=== PATIENT | male | born 1965 | race Caucasian/White ===

== ENCOUNTER 2017-01-23 10:03 | Emergency (ER) | payer BC ==
[2017-01-23] MEDS ORDERED: cefTRIAXone VIAL(*) 1,000 MG VIAL IVPB ONE (10:55)
[2017-01-23] MEDS ORDERED: NS 0.9% 1000 ML* 1,000 ML IV ONE (10:56)
--- NOTE | 2017-01-23 11:02 | UC ---
Complaint Male HPI - HPI Summary HPI Summary: He has had chronic urinary frequency and prior care under a urologist for prostate disease but it got better and he was lost to f/u. He is not on any prostate medications now any longer. He has started having hematuria and last night he had a fever. He has not taken antipyretics today and has no fever this morning. - History of Current Complaint Chief Complaint: UCGeneralIllness Stated Complaint: URINARY;FEVER Time Seen by Provider: 01/23/17 10:25 Hx Obtained From: Patient, Family/University Extension Specialist Onset/Duration: Gradual Onset, Lasting Days Timing: Constant, Lasting Days Severity Initially: Mild Severity Currently: Moderate Location: None Aggravating Factor(s): Nothing - No pain with urination. Alleviating Factor(s): Nothing Associated Signs And Symptoms: Positive: Diaphoresis, Fever, Hematuria, Appetite - He is still eating and drinking well.. Negative: Dysuria, Constipation, Blood in Stool, Rectal Pain, Penile Swelling, Penile Discharge - Allergies/Home Medications Allergies/Adverse Reactions: Allergies Allergy/AdvReac Type Severity Reaction Status Date / Time No Known Allergies Allergy Verified 01/23/17 10:33 PMH/Surg Hx/FS Hx/Imm Hx Previously Healthy: No - prostate disease. - Surgical History Surgical History: Yes Surgery Procedure, Year, and Place: L achillies tendon repair, L shoulder, both ankles - Family History Known Family History: Positive: Other - no known prostate cancer. - Social History Occupation: Employed Full-time Lives: With Family Alcohol Use: None Substance Use Type: None Smoking Status (MU): Never Smoked Tobacco Have You Smoked in the Last Year: No - Immunization History Most Recent Influenza Vaccination: 1835-4321 Hx Tetanus, Diphtheria Vaccination: Yes Vaccination Up to Date: Yes Review of Systems Constitutional: Fever, Chills Genitourinary: Frequency All Other Systems Reviewed And Are Negative: Yes Physical Exam Triage Information Reviewed: Yes Appearance: Well-Appearing, No Pain Distress, Well-Nourished Vital Signs: Initial Vital Signs Temp 98.5 F 01/23/17 10:33 Pulse 80 01/23/17 10:33 Resp 20 01/23/17 10:33 BP 109/64 01/23/17 10:33 Pulse Ox 100 01/23/17 10:33 Vital Signs Reviewed: Yes Eyes: Positive: Conjunctiva Clear ENT: Positive: Normal ENT inspection. Negative: Pharyngeal erythema Neck: Positive: Supple, Nontender, No Lymphadenopathy Respiratory: Positive: Lungs clear, Normal breath sounds, No respiratory distress, No accessory muscle use. Negative: Respiratory distress Cardiovascular: Positive: RRR, No Murmur, Pulses Normal, Brisk Capillary Refill Abdomen Description: Positive: Nontender, No Organomegaly, Soft. Negative: CVA Tenderness (R), CVA Tenderness (L), Distended, Guarding, Peritoneal Signs Musculoskeletal: Positive: Strength Intact, ROM Intact, No Edema Neurological: Positive: Alert, Muscle Tone Normal. Negative: Fatigued, Lethargic Psychological: Positive: Normal Response To Family, Age Appropriate Behavior Skin: Negative: rashes Re-Evaluation - Re-Evaluation First Eval Change: Improved Complaint Male Course/Dx - Course Course Of Treatment: No sirs criteria and no chills or fever now. I do not believe there is evidence of sepsis. he does have known prostate disease which has gone unchecked for some time. LIkely this is BPH with overflow incontinence and distension with infection. We did discuss importance of f/u to ensure this is not prostate cancer or bladder cancer. He and agree to f/u with urology. CT reviewed with both of them and they again agree to f/u with urology. - Differential Dx/Diagnosis Provider Diagnoses: uti. prostate disease. Discharge - Discharge Plan Condition: Good Disposition: HOME Prescriptions: Cephalexin CAP* [Keflex CAP*] 500 mg PO TID #30 cap Patient Education Materials: Hematuria (ED), Urinary Traction Infection in Older Adults (ED) Referrals: Non Staff,Doctor [Primary Care Provider] - Jorge Darby MD [Medical Doctor] -
--- NOTE | 2017-01-23 11:15 | RAD ---
CLINICAL HISTORY: Hematuria and fever COMPARISON: None TECHNIQUE: Noncontrast CT examination of the abdomen and pelvis from the lung bases through the initial tuberosities. FINDINGS: VISUALIZED LUNG BASES: The visualized lung bases are grossly clear. There is no pleural effusion. ABDOMEN AND PELVIS: Evaluation of the solid organs and vasculature is limited without intravenous contrast. The liver, spleen, pancreas and adrenal glands are grossly normal in appearance. The gallbladder is normal. The kidneys are normal in appearance without focal mass, calcification or signs of hydronephrosis. Evaluation of the gastrointestinal tract is limited without oral contrast. The small and large bowel are not distended.The patient's normal appendix is identified in the right lower quadrant measuring 5 mm in diameter with gas in the lumen (axial image 134 and coronal image 39). There is no gross retroperitoneal or mesenteric lymphadenopathy. There is a small left-sided fat-containing inguinal hernia. There is coarse calcification noted in the prostate gland. The abdominal aorta and iliac arteries are normal in course and diameter. Degenerative changes include multilevel loss of intervertebral disc height involving the lower thoracic and lumbar spine.There are no sinister bone lesions. IMPRESSION: There are chronic and degenerative changes described in body the report, but none that would account for the patient's current clinical presentation. There are no renal calculi or signs of hydronephrosis bilaterally.
[2017-01-23 12:38] VITALS: BP 125/66
[2017-01-23 14:09] LABS: Hematocrit 44 % (42-52); Hemoglobin 14.8 g/dl (14.0-18.0); Mean Corpuscular HGB Conc 34 g/dl (31-36); Mean Corpuscular Hemoglobin 31 pg (27-31); Mean Corpuscular Volume 91 fL (80-94); Mean Platelet Volume 10 um3 (7.4-10.4); Red Blood Count 4.78 10^6/ul (4.0-5.4); Red Cell Distribution Width 14 % (10.5-15)
[2017-01-23 14:15] LABS: Albumin 4.4 g/dL (3.2-5.2); BUN/Creatinine Ratio 16.3 (8-20); EGFR African American 112.5 (>60); EGFR Non-African American 87.4 (>60); Globulin 2.3 g/dL (2-4); Total Bilirubin 2.4 mg/dL (0.2-1.0); Total Protein 6.7 g/dL (6.4-8.9)
--- NOTE | 2017-01-24 07:54 | UC ---
Progress - Progress Note Progress Note: call patient. elevated wbc - 20.0. if worse er. Re-Evaluation - Re-Evaluation First Eval Change: Improved
== END 2017-01-23 12:50 | disposition home or self-care (01) ==
LOC: UCCORT 10:03
DX: N39.0 Urinary tract infection, site not specified (principal); R31.9 Hematuria, unspecified; B96.20 Unspecified Escherichia coli [E. coli] as the cause of diseases classified elsewhere; N42.9 Disorder of prostate, unspecified; R50.9 Fever, unspecified; R61 Generalized hyperhidrosis
CPT/HCPCS: 36415; 74176; 80053; 81003; 85025; 87077; 87086; 87186; 96361; 96365; 99212; G0463; J0696

== ENCOUNTER 2017-08-24 17:37 | Emergency (ER) | payer BC ==
[2017-08-24 18:09] VITALS: BP 121/66
--- NOTE | 2017-08-24 18:53 | UC ---
Skin Complaint HPI - HPI Summary HPI Summary: 51 yo male abraided right ware about a week ago playing soft ball now feeling some malaise and myalgias thinks his tetanus is up to date he will check - History of Current Complaint Chief Complaint: UCSkin Time Seen by Provider: 08/24/17 18:41 Stated Complaint: RIGHT CALF WOUND Hx Obtained From: Patient Onset/Duration: Sudden Onset, Lasting Days Timing: Constant Onset Severity: Moderate Current Severity: Mild Pain Intensity: 2 Pain Scale Used: 0-10 Numeric Location: Discrete Character: Swelling, Pain, Redness, Raised Aggravating Factor(s): Touch Alleviating Factor(s): Nothing Associated Signs & Symptoms: Positive: Tenderness - Allergy/Home Medications Allergies/Adverse Reactions: Allergies Allergy/AdvReac Type Severity Reaction Status Date / Time morphine Allergy Nausea Verified 08/24/17 18:09 Review of Systems Constitutional: Fatigue Skin: Negative Eyes: Negative ENT: Negative Respiratory: Negative Cardiovascular: Negative Gastrointestinal: Negative Genitourinary: Negative Motor: Negative Neurovascular: Negative Musculoskeletal: Myalgia Neurological: Negative Psychological: Negative Is Patient Immunocompromised?: No All Other Systems Reviewed And Are Negative: Yes PMH/Surg Hx/FS Hx/Imm Hx Previously Healthy: Yes - Surgical History Surgical History: Yes Surgery Procedure, Year, and Place: L achillies tendon repair, L shoulder, both ankles - Family History Known Family History: Positive: Diabetes, Other - no known prostate cancer. - Social History Alcohol Use: None Substance Use Type: None Smoking Status (MU): Never Smoked Tobacco Have You Smoked in the Last Year: No - Immunization History Most Recent Influenza Vaccination: 1631-2596 Hx Tetanus, Diphtheria Vaccination: Yes Vaccination Up to Date: Yes Physical Exam Triage Information Reviewed: Yes Appearance: Well-Appearing, No Pain Distress, Well-Nourished Vital Signs: Initial Vital Signs Temp 99.4 F 08/24/17 18:05 Pulse 58 08/24/17 18:05 Resp 16 08/24/17 18:05 BP 121/66 08/24/17 18:05 Pulse Ox 99 08/24/17 18:05 Vital Signs Reviewed: Yes ENT: Positive: Hearing grossly normal. Negative: Nasal congestion, Nasal drainage, Tonsillar swelling, Tonsillar exudate, Trismus, Hoarse voice, Sinus tenderness Neck: Positive: Supple, Nontender Respiratory: Positive: Lungs clear, Normal breath sounds, No respiratory distress Cardiovascular: Positive: RRR, No Murmur Musculoskeletal: Positive: ROM Intact, Edema @ - pretibial (R) Psychological Exam: Normal Skin Exam: Other - abrasion right ware/some surrounding erthyema/culture obtained Course/Dx - Diagnoses Provider Diagnoses: abrasion right ware. possible cellulitis Discharge - Sign-Out/Discharge Documenting (check all that apply): Discharge/Admit/Transfer - Discharge Plan Condition: Stable Disposition: HOME Prescriptions: DOXYcycline CAP(*) [DOXYcycline 100MG CAP(*)] 100 mg PO BID #14 cap Mupirocin 2% OINT* [Bactroban 2 % Oint*] 1 applic TOPICAL TID #1 tube Patient Education Materials: Abrasion (ED) Referrals: Rosa Fung PA [Primary Care Provider] - 1 Week (if not better) Additional Instructions: culture pending wash abrasion 2-3 x day with soap and water dry apply a thin film of bactroban oint recheck sooner for worsening symptoms - Billing Disposition and Condition Condition: STABLE Disposition: Home
== END 2017-08-24 19:01 | disposition home or self-care (01) ==
LOC: UCCORT 17:37
DX: S80.811A Abrasion, right lower leg, initial encounter (principal); X58.XXXA Exposure to other specified factors, initial encounter; Y93.64 Activity, baseball; Y92.9 Unspecified place or not applicable; Z88.5 Allergy status to narcotic agent
CPT/HCPCS: 87070; 87205; 99212; G0463

== ENCOUNTER 2017-12-02 10:16 | Emergency (ER) | payer BC ==
--- OUTSIDE RECORDS SUMMARY | 2017-12-02 10:32 | XMS REPORT ---
:1965 External Reference #:[id number] Author Organization [facility] Address [address] [place] [address] Phone [phone] Care Team Providers Name Role Phone Rosa Fung PA-C Care Team Information Applicator Sprayer Unavailable Rosa Fung PA-C Primary Care Physician Unavailable Payers Type Date Identification Numbers Payment Provider Subscriber Commercial Effective: Policy Number: Sandra Palmer 2017 [id number] PayID: [id number] [place] [address] Medigap Part B Expires: 2017 Policy Number: Sandra Palmer [id number] PayID: [id number] [place] [address] Problems Date Description Provider Status Onset: 06/02/2011 Fracture therapy follow-up Chriss Jackson MD Active Onset: 06/02/2011 Closed fracture of distal end of Chriss Jackson MD Active radius Onset: 02/26/2003 Disorder of bursa of shoulder region Active Onset: 02/26/2003 Sprain of hand Active Onset: 02/26/2003 Strain of rotator cuff capsule Active Onset: 10/14/2017 Multiple skin tags Medardo Castillo M.D. Active Onset: 01/25/2017 Madhu hematuria Medardo Castillo M.D. Active Onset: 01/25/2017 Genital warts Medardo Castillo M.D. Active Onset: 01/25/2017 Benign prostatic hypertrophy with Medardo Castillo M.D. Active outflow obstruction Onset: 01/25/2017 Urinary tract infectious disease Medardo Castillo M.D. 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 bedtime Citalopram / Active Tablets 20mg Take One Unknown Hydrobromide 0000 Tablet By Mouth Every Day Bupropion HCL / Active Tablets ER 150mg One tablet Unknown ER (SR) 0000 12HR once a day Ciprofloxacin 02/08/ Hx Tablets 500mg 20tabs Once for JonathanDEVON 2016 - Cystoscopy Medardo, 02/09/ M.DVega 2016 Tamsulosin HCL 01/25/ Hx Capsules 0.4mg 90caps 1 tab by N40.1 Jonathan 2016 - mouth every Medardo, day at M.D. 2018 bedtime Cephalexin / Hx Capsules 500mg One tablet Sarmast, 0000 - three times Eran, day 2017 Vital Signs Date Vital Result Comment 12/02/2017 BP Systolic 129 mmHg BP Diastolic 83 mmHg Body Temperature 98.7 F Heart Rate 62 /min Respiratory Rate 18 /min Height 74 inches 6'2" Weight 232.00 lb BMI (Body Mass Index) 29.8 kg/m2 BSA (Body Surface Area) 2.31 m2 [place] body weight in kilograms 86 O2 % BldC Oximetry 97 % Pain Level 0 10/14/2017 BP Systolic 112 mmHg BP Diastolic 71 mmHg Body Temperature 98.1 F Heart Rate 62 /min Respiratory Rate 15 /min Height 74 inches 6'2" [place] body weight in kilograms 86 O2 % BldC Oximetry 99 % Pain Level 0 02/08/2017 BP Systolic 125 mmHg BP Diastolic 75 mmHg Body Temperature 98.4 F Heart Rate 72 /min Respiratory Rate 19 /min Height 74 inches 6'2" Weight 221.38 lb BMI (Body Mass Index) 28.4 kg/m2 BSA (Body Surface Area) 2.27 m2 [place] body weight in kilograms 86 O2 % BldC Oximetry 97 % Pain Level 0 01/25/2017 BP Systolic 124 mmHg BP Diastolic 76 mmHg Body Temperature 98.5 F Heart Rate 68 /min Respiratory Rate 16 /min Height 74 inches 6'2" Weight 222.12 lb BMI (Body Mass Index) 28.5 kg/m2 BSA (Body Surface Area) 2.27 m2 [place] body weight in kilograms 86 O2 % BldC Oximetry 98 % Pain Level 0 Results Test Date Test Result H/L Range Note Ua RFX Micro & Culture II 10/14/2017 Urine Color YELLOW Yellow 1 Urine Clarity CLEAR Clear 1 Urine Glucose - Dipstick NEGATIVE mg/dL Negative 1 Urine Bilirubin - Dipstick NEGATIVE Negative 1 Urine Ketone NEGATIVE mg/dL Negative 1 Urine Specific [place] 1.025 1.010-1.030 1 Urine Blood NEGATIVE Negative 1 Urine PH 6.0 Low 6.5-7.5 1 Urine Protein - Dipstick NEGATIVE mg/dL Negative 1 Urine Urobilinogen - Dipstick 0.2 E.U./dL 0.2-1.0 1 Urine Nitrite - Dipstick NEGATIVE Negative 1 Urine Leuk Esterase NEGATIVE Negative 1 Source: URINE, CLEAN CAT <SEE NOTE> 1, 2 Basic Metabolic Panel 10/14/2017 Glucose 95 mg/dL 74-106 1 BUN 14 mg/dL 7-18 1 Creatinine 1.0 mg/dL 0.6-1.3 1 Glom Filtration Rate, Estimate >60 mL/min >60 1 If >60 mL/min >60 1, 3 BUN/Creat 14.0 ratio 1 Sodium 143 mmol/L 136-145 1 Potassium 4.5 mmol/L 3.5-5.1 1 Chloride 109 mmol/L High 98-107 1 Carbon Dioxide 30 mmol/L 21-32 1 Anion Gap 4 mEq/L Low 8-16 1 Calcium 8.6 mg/dL 8.5-10.1 1 1 R31.0 2 URINE, CLEAN CATCH 3 Note: Persistent reduction for 3 months or more in an eGFR <60 mL/min/1.73 m2 defines CKD. Patients with eGFR values >/=60 mL/min/1.73 m2 may also have CKD if evidence of persistent proteinuria is present. The original MDRD equation for estimated GFR is not valid for patients less than 18 years of age. Additional information may be found at www.kdo[facility].org. Procedures Date CPT Code Description Status 11/16/2017 95250 Destruction Penis Lesion(S) Simple Laser Surgery Completed 11/16/2017 36713 Removal Skin Tags/Multi To 15 Completed 10/14/2017 22087 Measurement Post Voiding Residual Urine By Completed Ultrasound,Non-Imaging 10/14/2017 49525 complex uroflowmetry electronic Completed 07/19/2017 55335 Stress Test Interpre And Report Only Completed 07/19/2017 95428 Stress Test Physician Super Only Completed 02/08/2017 66776 Cystourethroscopy W/Calibration/Dilation Urethral Completed Strict/Stenosis 01/25/2017 50605 Measurement Post Voiding Residual Urine By Completed Ultrasound,Non-Imaging 01/25/2017 14666 complex uroflowmetry electronic Completed 05/04/2011 40419 Application of Cast short arm Completed 04/28/2011 45456 Fracture distal radial-closed Completed 02/17/2011 03231 Aspiration/Injection joint Completed intermediate(wrist/ankle/elbow/olbursa 02/05/2010 26600 Anesthesia, Nose & Accessory Sinus Surgery Not Completed Otherwise Spec 02/04/2010 02009 EKG Interpretation And Report Only Completed 05/27/2008 37741 Arthoscopy Ankle Excision Osteochondral Defect Completed Encounters Type Date Location Provider CPT E/M Dx Office Visit 10/14/2017 9:00a Urology Medardo Castillo M.D. 82588 A63.0 R31.0 N40.1 L91.8 Office Visit 02/08/2017 10:00a Urology Medardo Castillo M.D. 25233 N39.0 A63.0 R31.0 N40.1 L91.8 Office Visit 01/25/2017 9:45a UrologMedardo Ronquillo M.D. 37688 N39.0 N40.1 A63.0 R31.0 Plan of Care 12/02/2017 - Medardo Castillo M.D.A63.0 Anogenital (venereal) wartsComments: Status post excision with no complications. Patient can follow up with me as needed
--- NOTE | 2017-12-02 10:34 | UC ---
Ear Complaint HPI - HPI Summary HPI Summary: 52 yo male presents with right ear decreased hearing over the last 2-3 weeks. He says he has had trouble with wax buildup in this ear in the past and thinks this is the cause of his recent hearing issues. Denies fever, chills, headache, sinus symptoms, or sore throat. - History of Current Complaint Stated Complaint: RIGHT EAR CONCERN Time Seen by Provider: 12/02/17 10:33 Hx Obtained From: Patient Severity Initially: Mild Severity Currently: Mild Pain Intensity: 2 Pain Scale Used: 0-10 Numeric - Allergies/Home Medications Allergies/Adverse Reactions: Allergies Allergy/AdvReac Type Severity Reaction Status Date / Time morphine Allergy Nausea Verified 12/02/17 11:19 Home Medications: Home Medications Tamsulosin CAP* [Flomax CAP*] 0.4 mg PO DAILY 12/02/17 [History Confirmed ] PMH/Surg Hx/FS Hx/Imm Hx Psychological History: Anxiety, Depression - Surgical History Surgical History: Yes Surgery Procedure, Year, and Place: L achillies tendon repair, L shoulder, both ankles - Family History Known Family History: Positive: Diabetes, Other - no known prostate cancer. - Social History Occupation: Employed Full-time Lives: With Family Alcohol Use: None Substance Use Type: None Smoking Status (MU): Never Smoked Tobacco Have You Smoked in the Last Year: No - Immunization History Most Recent Influenza Vaccination: 6758-2397 Hx Tetanus, Diphtheria Vaccination: Yes Vaccination Up to Date: Yes Review of Systems Constitutional: Negative Skin: Negative Eyes: Negative ENT: Ear Ache Respiratory: Negative Cardiovascular: Negative Gastrointestinal: Negative Musculoskeletal: Negative Neurological: Negative Psychological: Negative All Other Systems Reviewed And Are Negative: Yes Physical Exam - Summary Physical Exam Summary: GENERAL: NAD. WDWN. No pain distress. SKIN: No rashes, sores, lesions, or open wounds. HEENT: Head: AT/NC Eyes: EOM intact. Conjunctiva clear without inflammation or discharge. Ears: Hearing grossly normal. RIGHT ear: Occluded by cerumen. LEFT ear: TM intact and wnl. Canal without edema or drainage. Nose: Nasal mucosa pink and moist. NTTP maxillary and frontal sinus. Throat: Posterior oropharynx without exudates, erythema, or tonsillar enlargement. Uvula midline. NECK: Supple. Nontender. No lymphadenopathy. CHEST: CTAB. No r/r/w. No accessory muscle use. Breathing comfortably and in no distress. CV: RRR. Without m/r/g. Pulses intact. Cap refill <2seconds NEURO: Alert. PSYCH: Age appropriate behavior. Triage Information Reviewed: Yes Vital Signs: Vital Signs: Temp Pulse Resp BP Pulse Ox 98.6 F 68 20 116/78 95 12/02/17 11:11 12/02/17 11:11 12/02/17 11:11 12/02/17 11:11 12/02/17 11:11 Vital Signs Reviewed: Yes Ear Complaint Course/Dx - Course Course Of Treatment: S/p ear irrigation - his decreased hearing resolved and he is feeling much better. Right TM intact without erythema. - Differential Dx/Diagnosis Provider Diagnoses: Right ear cerumen impaction Discharge - Sign-Out/Discharge Documenting (check all that apply): Patient Departure All imaging exams completed and their final reports reviewed: No Studies - Discharge Plan Condition: Stable Disposition: HOME Patient Education Materials: Cerumen Impaction (ED) Referrals: Rosa Fung PA [Primary Care Provider] - Additional Instructions: If you develop a fever, shortness of breath, chest pain, new or worsening symptoms - please call your PCP or go to the ED. 1) Try [id number] Debrox drops to help alleviate your ear wax - Billing Disposition and Condition Condition: STABLE Disposition: Home - Attestation Statements Provider Attestation: I was available for consult. This patient was seen by the [facility]. The patient was not presented to, seen by, or examined by me. -Coni
[2017-12-02 11:18] VITALS: BP 116/78
== END 2017-12-02 11:43 | disposition home or self-care (01) ==
LOC: UCCORT 10:16
DX: H61.21 Impacted cerumen, right ear (principal); Z88.5 Allergy status to narcotic agent
CPT/HCPCS: 99212; G0463